=== PATIENT | female | born 1995 | race Two or more races ===

== ENCOUNTER 2019-04-12 19:37 | Emergency (ER) | payer OTHER, MEDICAID ==
[~2019-04-12] VITALS: Ht 157.5 cm; Wt 101.1 kg
[~2019-04-12 19:37] MED LIST: ALPR2TAB2 PO; BIRTH CONTROL PO; CLON0.1T22; HCTZ; LISI-167; METF500T27; TEMA30CA PO
[2019-04-12 19:41] VITALS: BP 130/84
[2019-04-12] MEDS ORDERED: DEXAMETHASONE 4 MG TABLET ONE (19:47)
[2019-04-12] MEDS ORDERED: FAMOTIDINE 20 MG TABLET ONE (19:47)
--- NOTE | 2019-04-12 19:50 | NUR ---
COAL [employer]IMMER: PT MEDICATED PER EMAR, 5 RIGHTS ADDRESSED.
[2019-04-12] MEDS ORDERED: DEXAMETHASONE 4 MG TABLET PO ONE (20:00)
[2019-04-12] MEDS ORDERED: FAMOTIDINE 20 MG TABLET PO ONE (20:00)
--- NOTE | 2019-04-12 20:22 | NUR ---
Patient/Caregiver given discharge instructions and they have confirmed that they understand the instructions. Patient ambulatory with steady gait.
== END 2019-04-12 20:34 | disposition home or self-care (01) ==
LOC: ED 20:00
DX: J30.2 Other seasonal allergic rhinitis (principal); I10 Essential (primary) hypertension; Z90.89 Acquired absence of other organs
CPT/HCPCS: 99283